=== PATIENT | male | born 1960 | race Caucasian/White ===

== ENCOUNTER 2017-02-19 13:30 | Observation (INO) | payer OTHER ==
[~2017-02-19 13:30] MED LIST: AUGMENTIN 875-1 EAC2 PO; CENTRUM SILVER1 EAC5 PO; EXCEDRIN MIGRA1 EAC3 PO; FISH OIL 11000 MG/CA PO; FUROSEMIDE40 M2 PO; GLUCAGEN1 MG/1 ML IM; GLUCOPHAGE500 M3 PO; GLUCOSE4 GM PO; HUMALOG KW200 UNIT/1 SC; HUMALOG100 UNITS/ SC; LACTULOSE PO; LANTUS100 UNITS/ SC; LASIX20 M1 PO; LASIX40 M1 PO; LEVEMIR100 UNITS/ SC; METFORMIN HCL500 M2 PO; MIRALAX17 G2 PO; MULTIVITAMINS1 EAC6 PO; NADOLOL40 M1 PO; PREDNISONE20 MG PO; PROBIOTIC1 EA10 PO; PROTONIX40 M2 PO; SPIRONOLACTONE50 M1 PO; TYLENOL325 M2 PO; [UNRECOGNIZED DRUG - REMARK]
[2017-02-19] MEDS ORDERED: ALDACTONE50 M1 PO (13:47)
[2017-02-19 17:06] LABS: BASO % 0.5 % (0-2); EOSINOPHIL ABSOLUTE COUNT 0.2 tho/cmm (0.0-0.7); HCT-HEMATOCRIT 29.8 % (36.0-53.5); HGB-HEMOGLOBIN 10.8 gm/dl (13.5-17.0); IMMATURE GRANULOCYTES ABSOLUTE 0.07 tho/cmm (0-0.03); IMMATURE GRANULOCYTES PERCENT 1.2 % (0-0.3); LYMPH % 18.1 % (20-45); LYMPH ABSOLUTE COUNT 1.1 tho/cmm (0.8-4.5); MCH (MEAN CORPUSCULAR HGB) 33.8 pg (28.0-32.0); MCHC MEAN CORPUSCULAR HGB CONC 36.2 % (32.0-36.0); MCV (MEAN CELL VOLUME) 93.1 fl (82.0-96.0); MEAN PLATELET VOLUME 11.7 cmc (9.4-12.4); MONO % 10.3 % (0-12); MONOCYTE ABSOLUTE COUNT 0.6 tho/cmm (0.0-1.2); NEUTROPHIL ABSOLUTE COUNT 3.8 tho/cmm (1.6-8.0); NEUTROPHIL-AUTOMATED 3.8 tho/cmm (1.6-8.0); NEUTROPHILS % 65.9 % (40-80); RED CELL DISTRIBUTION WIDTH 16.1 % (12.4-16.4); WHITE BLOOD COUNT 5.8 tho/cmm (4.0-10.0)
[2017-02-19 17:23] LABS: ALB/GLOB RATIO 0.4 (0.8-2.0); ALBUMIN 1.9 g/dl (3.5-5.0); ALKALINE PHOSPHATASE 172 U/L (33-138); ALT/SGPT 97 U/L (12-78); AMYLASE 92 U/L (20-90); ANION GAP 14 mmol/L (0-20); AST/SGOT 181 U/L (10-40); BILIRUBIN,DIRECT 3.1 mg/dl (0.0-0.3); BILIRUBIN,INDIRECT 1.6 mg/dL (0.0-1.0); BILIRUBIN,TOTAL 4.7 mg/dl (0.0-1.5); BLOOD UREA NITROGEN 24 mg/dl (6-24); CALCIUM 7.7 mg/dl (8.5-10.5); CARBON DIOXIDE-VENOUS 21 mmol/L (22-32); CHLORIDE 110 mmol/l (96-110); CREATININE 1.42 mg/dl (0.60-1.30); GLUCOSE 87 mg/dL (70-110); LIPASE 1083 U/L (73-393); MAGNESIUM 2.2 mg/dl (1.8-2.6); POTASSIUM 5.1 mmol/L (3.7-5.1); SODIUM 140 mmol/L (135-145); eGFR VALUE FOR BLACK 64 mL/Min
[2017-02-19 17:32] LABS: PLATELET COUNT 63 tho/cmm (150-450)
[2017-02-20 05:01] LABS: BASO % 0.8 % (0-2); EOS % 3.1 % (0-7); EOSINOPHIL ABSOLUTE COUNT 0.2 tho/cmm (0.0-0.7); HGB-HEMOGLOBIN 9.5 gm/dl (13.5-17.0); IMMATURE GRANULOCYTES ABSOLUTE 0.04 tho/cmm (0-0.03); IMMATURE GRANULOCYTES PERCENT 0.8 % (0-0.3); LYMPH % 29.6 % (20-45); LYMPH ABSOLUTE COUNT 1.4 tho/cmm (0.8-4.5); MCH (MEAN CORPUSCULAR HGB) 33.9 pg (28.0-32.0); MCHC MEAN CORPUSCULAR HGB CONC 36.5 % (32.0-36.0); MCV (MEAN CELL VOLUME) 92.9 fl (82.0-96.0); MEAN PLATELET VOLUME 12.4 cmc (9.4-12.4); MONO % 13.6 % (0-12); MONOCYTE ABSOLUTE COUNT 0.7 tho/cmm (0.0-1.2); NEUTROPHIL ABSOLUTE COUNT 2.5 tho/cmm (1.6-8.0); NEUTROPHIL-AUTOMATED 2.5 tho/cmm (1.6-8.0); NEUTROPHILS % 52.1 % (40-80); PLATELET COUNT 74 tho/cmm (150-450); RED CELL DISTRIBUTION WIDTH 16.5 % (12.4-16.4); WHITE BLOOD COUNT 4.8 tho/cmm (4.0-10.0)
[2017-02-20 05:14] LABS: ALB/GLOB RATIO 0.3 (0.8-2.0); ALBUMIN 1.5 g/dl (3.5-5.0); ALKALINE PHOSPHATASE 143 U/L (33-138); ALT/SGPT 75 U/L (12-78); BILIRUBIN,TOTAL 3.5 mg/dl (0.0-1.5); BLOOD UREA NITROGEN 22 mg/dl (6-24); CALCIUM 7.1 mg/dl (8.5-10.5); CARBON DIOXIDE-VENOUS 19 mmol/L (22-32); CHLORIDE 112 mmol/l (96-110); GLUCOSE 81 mg/dL (70-110); SODIUM 138 mmol/L (135-145); eGFR VALUE FOR BLACK 78 mL/Min
[2017-02-20 05:18] LABS: ANION GAP 12 mmol/L (0-20); AST/SGOT 154 U/L (10-40); BILIRUBIN,DIRECT 2.3 mg/dl (0.0-0.3); BILIRUBIN,INDIRECT 1.2 mg/dL (0.0-1.0); POTASSIUM 4.8 mmol/L (3.7-5.1)
[2017-02-21 04:35] LABS: BASO % 0.7 % (0-2); EOS % 3.4 % (0-7); EOSINOPHIL ABSOLUTE COUNT 0.1 tho/cmm (0.0-0.7); HCT-HEMATOCRIT 26.1 % (36.0-53.5); HGB-HEMOGLOBIN 9.3 gm/dl (13.5-17.0); IMMATURE GRANULOCYTES ABSOLUTE 0.14 tho/cmm (0-0.03); IMMATURE GRANULOCYTES PERCENT 3.4 % (0-0.3); LYMPH % 32.8 % (20-45); LYMPH ABSOLUTE COUNT 1.3 tho/cmm (0.8-4.5); MCH (MEAN CORPUSCULAR HGB) 33.7 pg (28.0-32.0); MCHC MEAN CORPUSCULAR HGB CONC 35.6 % (32.0-36.0); MCV (MEAN CELL VOLUME) 94.6 fl (82.0-96.0); MONOCYTE ABSOLUTE COUNT 0.6 tho/cmm (0.0-1.2); NEUTROPHIL ABSOLUTE COUNT 1.8 tho/cmm (1.6-8.0); NEUTROPHIL-AUTOMATED 1.8 tho/cmm (1.6-8.0); NEUTROPHILS % 44.7 % (40-80); PLATELET COUNT 62 tho/cmm (150-450); RED BLOOD COUNT 2.76 mil/cmm (4.40-5.70); RED CELL DISTRIBUTION WIDTH 16.5 % (12.4-16.4); WHITE BLOOD COUNT 4.1 tho/cmm (4.0-10.0)
[2017-02-21 04:41] LABS: ANION GAP 15 mmol/L (0-20); BLOOD UREA NITROGEN 16 mg/dl (6-24); CALCIUM 7.2 mg/dl (8.5-10.5); CARBON DIOXIDE-VENOUS 19 mmol/L (22-32); CHLORIDE 113 mmol/l (96-110); CREATININE 1.09 mg/dl (0.60-1.30); GLUCOSE 113 mg/dL (70-110); POTASSIUM 4.4 mmol/L (3.7-5.1); SODIUM 143 mmol/L (135-145); eGFR VALUE FOR BLACK 87 mL/Min
[2017-02-21] MEDS ORDERED: LEVAQUIN750 M1 PO (13:09)
[2017-05-22] MEDS ORDERED: LASIX40 M1 PO (00:14)
[2017-05-22] MEDS ORDERED: XIFAXAN550 M1 PO (00:15)
[2017-05-25] MEDS ORDERED: LEVAQUIN750 M1 PO (17:12)
== END 2017-02-21 15:20 ==
LOC: 5WE 13:30
PROVIDERS: Nurse Practitioner; ADMIT Family Medicine
PROC: 05HA33Z Insertion of Infusion Device into Left Brachial Vein, Percutaneous Approach (ICD-10-PCS; principal; 2017-02-19)
DX: A04.5 Campylobacter enteritis (principal); E86.1 Hypovolemia; D64.9 Anemia, unspecified; E11.9 Type 2 diabetes mellitus without complications; D69.6 Thrombocytopenia, unspecified; I95.9 Hypotension, unspecified; R42 Dizziness and giddiness; R53.83 Other fatigue; R60.0 Localized edema; K75.81 Nonalcoholic steatohepatitis (NASH); K74.60 Unspecified cirrhosis of liver; Z79.4 Long term (current) use of insulin; Z79.899 Other long term (current) drug therapy; Z80.0 Family history of malignant neoplasm of digestive organs; Z90.49 Acquired absence of other specified parts of digestive tract; Z98.52 Vasectomy status; Z98.890 Other specified postprocedural states
CPT/HCPCS: C1751; G0378; G0379; J1815; J1956; J7030